=== PATIENT | female | born 2000 | race Caucasian/White ===

== ENCOUNTER 2024-07-14 01:02 | Emergency (ER) | payer OTHER ==
[~2024-07-14] VITALS: Ht 177.8 cm; Wt 127.0 kg
[2024-07-14 01:05] VITALS: BP_SYST 131; PULSE 81; RESP 26; TEMP 97.1; O2SAT 99
[2024-07-14] MEDS ORDERED: ONDANSETRON HCL 4 MG/2 ML VIAL ONE (01:15)
[2024-07-14] MEDS: NACL 0.9% 1,000 ML IV ONE ×2 (01:40→02:10)
[2024-07-14] MEDS: ONDANSETRON HCL 4 MG/2 ML VIAL IVP ONE ×3 (01:40→03:01)
[2024-07-14 01:48] LABS: BASOPHILS % (AUTO) 0.2 % (0.0-2.0); EOSINOPHILS # (AUTO) 0.1 K/uL (0.0-0.4); EOSINOPHILS % (AUTO) 0.8 % (0.0-4.0); HEMATOCRIT 36.9 % (36-48); HEMOGLOBIN 12.6 g/dL (12.0-16.0); LYMPHOCYTES # (AUTO) 1.5 K/uL (1.0-5.5); LYMPHOCYTES % (AUTO) 13.6 % (20.5-51.5); MEAN CORPUSCULAR HEMOGLOBIN 27 pg (27-31); MEAN CORPUSCULAR HGB CONC 34 % (32-36); MEAN CORPUSCULAR VOLUME 79 fL (79.0-98.0); MONOCYTES # (AUTO) 0.5 K/uL (0.0-1.0); MONOCYTES % (AUTO) 4.2 % (1.7-9.3); NEUTROPHILS # (AUTO) 8.8 K/uL (1.8-7.7); NEUTROPHILS % (AUTO) 81.2 % (40.0-70.0); PLATELET COUNT (AUTO) 248 K/uL (130-430); RED BLOOD CELL COUNT(AUTO) 4.68 MIL/uL (4.2-6.2); RED CELL DISTRIBUTION WIDTH 15.7 % (9.0-15.0); WHITE BLOOD COUNT (AUTO) 10.9 K/uL (4.8-10.8)
[2024-07-14 01:57] LABS: CALCIUM 9.4 mg/dL (8.4-11.0); CREATININE 0.95 mg/dL (0.55-1.30); POTASSIUM 3.5 mmol/L (3.5-5.1)
[2024-07-14] MEDS: DIPHENHYDRAMINE INJ 50 MG/ML VIAL IVP ONE (03:53)
[2024-07-14] MEDS: HALOPERIDOL LACTATE 5 MG/ML VIAL IVP ONE (03:55)
[2024-07-14] MEDS ORDERED: ONDA-8 TL (05:41)
[2024-07-14 05:45] VITALS: BP_SYST 108; PULSE 60; RESP 19; TEMP 97.1; O2SAT 99
== END 2024-07-14 05:45 | disposition home or self-care (01) ==
LOC: SED 01:02
DX: F10.129 Alcohol abuse with intoxication, unspecified (principal); R11.2 Nausea with vomiting, unspecified; F12.90 Cannabis use, unspecified, uncomplicated; Z79.899 Other long term (current) drug therapy; Y90.9 Presence of alcohol in blood, level not specified
CPT/HCPCS: 99284; 96374; 96375; 96361; 80048; 85025; 36415; 96376; J1200; J1630; J2405; J7030